=== PATIENT | female | born 1995 | race Caucasian/White ===

== ENCOUNTER → 2021-03-02 08:05 | Outpatient (CLI) | payer OTHER ==
[~2021-03-02 08:05] MED LIST: CARAFATE1 G PO; PROTONIX40 MG PO
== END | disposition home or self-care (01) ==
LOC: PPH VACUNA 08:05
DX: Z23 Encounter for immunization (principal)

== ENCOUNTER 2021-10-21 08:00 | Outpatient (CLI) | payer OTHER | END 2021-10-21 08:30 | disposition home or self-care (01) | LOC: PPH VACUNA 08:00 | PROVIDERS: ATTEND Emergency Medicine Pediatric Emergency Medicine | DX: Z23 Encounter for immunization (principal) ==